=== PATIENT | male | born 2000 | race African-American/Black ===

== ENCOUNTER 2018-01-10 14:37 | Emergency (ER) | payer OTHER ==
--- NOTE | 2018-01-10 15:26 | PDOC ---
History of Present Illness - General Chief Complaint: Cold Symptoms Stated Complaint: FLU Time Seen by Provider: 01/10/18 15:21 History Source: Patient Exam Limitations: No Limitations - History of Present Illness Initial Comments: 01/10/18 15:34 CHIEF COMPLAINT: Fever and cough 3 days HISTORY OF PRESENT ILLNESS: 17-year-old, previously healthy, [facility] [employer] student living in the dorms. Patient was well until when he developed fever, headache, sore throat, fever and chills, nausea, vomiting, and slight diarrhea. He feels very weak and achy all over. His nose is running and he cannot stop sneezing. His throat feels sore especially when he coughs. He has cough with some greenish sputum. He's been having fever on and off. The last episode of vomiting was yesterday. He had some slight diarrhea which has resolved. His headache comes and goes. There is no neck stiffness. He has been exposed to multiple sick contacts with the flu at school. REVIEW OF SYSTEMS: GENERAL/CONSTITUTIONAL: Positive fever and chills. Positive weakness. HEAD, EYES, EARS, NOSE AND THROAT: Positive nasal congestion and sore throat with cough. CARDIOVASCULAR: Other chest pain on coughing. No shortness of breath. RESPIRATORY: Positive cough with green sputum. No history of asthma. No wheezing. GASTROINTESTINAL: Awes of nausea and vomiting yesterday. Now resolved. Slight diarrhea, now resolved. No rectal bleeding. GENITOURINARY: No dysuria, frequency, or change in urination. MUSCULOSKELETAL: Positive diffuse joint and muscle aching. SKIN AND BREASTS: No rash or easy bruising. NEUROLOGIC: Positive headache, on and off. No syncope. No focal numbness or weakness. PSYCHIATRIC: No depression or anxiety. ENDOCRINE: No increased thirst. No abnormal weight change. HEMATOLOGIC/LYMPHATIC: No anemia, easy bleeding, or history of blood clots. ALLERGIC/IMMUNOLOGIC: No hives or skin allergy. No latex allergy. Past History - Past Medical History Allergies/Adverse Reactions: Allergies Allergy/AdvReac Type Severity Reaction Status Date / Time No Known Allergies Allergy Verified 01/10/18 15:56 Home Medications: Ambulatory Orders Naproxen [Naprosyn] 500 mg PO BID PRN #14 tablet 01/10/18 COPD: No - Immunization History Immunization Up to Date: Yes - Suicide/Smoking/Psychosocial Hx Smoking History: Former smoker Have you smoked in the past 12 months: No If you are a former smoker, when did you quit?: PT SMOKES MARIJUANA Information on smoking cessation initiated: No Hx Alcohol Use: No Drug/Substance Use Hx: Yes (MARIJUANA) Substance Use Type: None *Physical Exam - Vital Signs Last Vital Signs Temp Pulse Resp BP Pulse Ox 102.8 F H 110 H 18 116/63 01/10/18 14:38 01/10/18 14:38 01/10/18 14:38 01/10/18 14:38 - Physical Exam Comments: 01/10/18 15:36 GENERAL: The patient is awake, alert, and fully oriented, in no acute distress. He is coughing intermittently. HEAD: Normal with no signs of trauma. EYES: Pupils equal, round and reactive to light, extraocular movements intact, sclera anicteric, conjunctiva clear. ENT: Ears are normal. Nares with erythema and clear discharge. Oropharynx with slight erythema, no exudates. Uvula is normal. NECK: Normal range of motion, supple without lymphadenopathy, JVD, or masses. No meningismus. LUNGS: Breath sounds equal, clear to auscultation bilaterally. No wheezes, and no crackles. HEART: Regular rate and rhythm, normal S1 and S2 without murmur, rub or gallop. ABDOMEN: Soft, nontender, normoactive bowel sounds. No guarding, no rebound. No masses. EXTREMITIES: Normal range of motion, no edema. No clubbing or cyanosis. No cords, erythema, or tenderness. NEUROLOGICAL: Cranial nerves II through XII grossly intact. Normal speech, normal gait. PSYCH: Normal mood, normal affect. SKIN: Warm, Dry, normal turgor, no rashes or lesions noted. 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 He is taking good oral fluids in the emergency department. He was given Tylenol and Naprosyn for fever and pain and he is now feeling much better. Repeat vitals: Vital Signs - 24 hr 01/10/18 01/10/18 14:38 17:32 Temperature 102.8 F H 99.1 F Pulse Rate 110 H Pulse Rate [ 88 Right Radial] Respiratory 18 Rate Blood Pressure 116/63 Blood Pressure 111/82 [Right Arm] O2 Sat by Pulse 100 Oximetry (%) On examination, his mucous membranes are inflamed, and he has frequent coughing , but his lungs are clear. Chest x-ray AP and lateral was reviewed by me. There is no focal infiltrate. Final radiology reading is pending at the time of disposition. Radiology follow -up program in place. Impression: Influenza-like illness in a young healthy man. Patient will be discharged with recommendations for oral hydration, Naprosyn twice a day as needed for pain and fever, rest until the symptoms improved. There is no evidence for acute pneumonia. Given that he is multiple days out from onset and not in one of the high risk groups, Tamiflu is not indicated. *DC/Admit/Observation/Transfer Diagnosis at time of Disposition: Influenza-like illness - Discharge Dispostion Disposition: HOME Condition at time of disposition: Stable Admit: No - Prescriptions Prescriptions: Naproxen [Naprosyn] 500 mg PO BID PRN #14 tablet PRN Reason: fever and pain - Referrals - Patient Instructions Printed Discharge Instructions: DI for Viral Upper Respiratory Infection -- Adult Additional Instructions: You were evaluated today for fever and flulike symptoms. Your chest x-ray is clear, showing no signs of any pneumonia. You are recommended to rest at home until the fever resolves. Drink plenty of fluids every day including soup, Gatorade, and other fluids. Do not return to class until the fever is gone. Take Naprosyn 500 mg twice daily with food as needed for pain or fever. Normally, the flu symptoms should resolve within a few days. Follow-up with the doctor or return to the emergency room for any progressive or severe symptoms. - Post Discharge Activity
[2018-01-10] MEDS ORDERED: ACETAMINOPHEN 325 MG TABLET (FP) PO ONE (15:33)
[2018-01-10] MEDS ORDERED: NAPROXEN 375 MG TABLET (FP) PO ONE (15:33)
[2018-01-10 17:33] VITALS: BP 111/82; PULSE 88; TEMP 99.1
== END 2018-01-10 18:18 | disposition home or self-care (01) ==
LOC: FER 14:37
DX: J11.1 Influenza due to unidentified influenza virus with other respiratory manifestations (principal); Z87.891 Personal history of nicotine dependence
CPT/HCPCS: 71046-TC-FY; 99281-25

== ENCOUNTER 2018-01-14 00:05 | Emergency (ER) | payer OTHER ==
[2018-01-14 00:16] VITALS: BP 136/77; PULSE 69; TEMP 97.3; BMI 19.8
--- NOTE | 2018-01-14 00:39 | PDOC ---
History of Present Illness - General Exam Limitations: No Limitations - History of Present Illness Initial Comments: 01/14/18 00:45 The patient is a 17 year old male, with no significant past medical history, who presents to the emergency department with, approx one day of diffuse abdominal pain and diarrhea. The patient reports he went to the hospital last week and was prescribed Tamiflu for flu-like symptoms. The patient states he was feeling better but last night (approx. 24 hours ago) he went to have dinner and after dinner began having diarrhea (non bloody). The patient states he has been having a crampy diffuse abdominal pain since last night so he decided to come to the ED today for evaluation. He denies any recent fevers, chills, headache or dizziness. He denies any recent nausea, vomit, or constipation. He denies any recent chest pain or shortness of breath. Allergies: NKA <Scar Carbone - Last Filed: 01/14/18 00:52> - General History Source: Patient <Evangelist Babcock - Last Filed: 01/14/18 02:29> - General Chief Complaint: Pain, Acute Stated Complaint: ABDOMINAL PAIN Time Seen by Provider: 01/14/18 00:24 Past History <Scar Carbone - Last Filed: 01/14/18 00:52> - Past Medical History COPD: No - Immunization History Immunization Up to Date: Yes - Suicide/Smoking/Psychosocial Hx Smoking History: Never smoked Have you smoked in the past 12 months: No If you are a former smoker, when did you quit?: PT SMOKES MARIJUANA Information on smoking cessation initiated: No Hx Alcohol Use: No Drug/Substance Use Hx: No Substance Use Type: None <Evangelist Babcock - Last Filed: 01/14/18 02:29> - Past Medical History Allergies/Adverse Reactions: Allergies Allergy/AdvReac Type Severity Reaction Status Date / Time No Known Allergies Allergy Verified 01/14/18 00:14 Home Medications: Ambulatory Orders Naproxen [Naprosyn] 500 mg PO BID PRN #14 tablet 01/10/18 Review of Systems - Review of Systems Comments:: 01/14/18 00:48 CONSTITUTIONAL: Absent: fever, no chills, no fatigue EYES: Absent: visual changes ENT: Absent: ear pain, no sore throat CARDIOVASCULAR: Absent: chest pain, no palpitations RESPIRATORY: Absent: cough, no SOB GI: Present: (+) Diarrhea. (+) Diffuse abdominal pain. Absent: no nausea, no vomiting, no constipation, GENITOURINARY: Absent: dysuria, no frequency, no hematuria MUSKULOSKELETAL: Absent: back pain, no arthralgia, no myalgia SKIN: Absent: rash NEURO: Absent: headache <Scar Carbone - Last Filed: 01/14/18 00:52> *Physical Exam - Vital Signs Last Vital Signs Temp Pulse Resp BP Pulse Ox 97.3 F L 69 18 136/77 97 01/14/18 00:15 01/14/18 00:15 01/14/18 00:15 01/14/18 00:15 01/14/18 00:15 - Physical Exam Comments: 01/14/18 00:49 GENERAL: Well-appearing, well-nourished. No apparent distress. HEENT: Normocephalic, atraumatic. PERRL, EOM intact. CARDIOVASCULAR: Normal S1, S2. Regular rate and rhythm. PULMONARY: Clear to auscultation bilaterally. ABDOMEN: +Diffuse mild tenderness. No guarding. No rebound. Soft, non-distended. EXTREMITIES: Normal ROM in all four extremities. No gross deformities. SKIN: Warm, dry. No rash NEUROLOGICAL: No focal neurological deficits. <Scar Carbone - Last Filed: 01/14/18 00:52> - Vital Signs Last Vital Signs Temp Pulse Resp BP Pulse Ox 97.3 F L 69 18 136/77 97 01/14/18 00:15 01/14/18 00:15 01/14/18 00:15 01/14/18 00:15 01/14/18 00:15 <Evangelist Babcock - Last Filed: 01/14/18 02:29> ED Treatment Course - LABORATORY CBC & Chemistry Diagram: 01/14/18 00:50 01/14/18 00:50 <Evangelist Babcock - Last Filed: 01/14/18 02:29> Medical Decision Making - Medical Decision Making 01/14/18 02:29 Dr. Babcock: The scribe's documentation has been prepared under my direction and personally reviewed by me in its entirery. I confirm that the note above accurately reflects all work, treatment, procedures, and medical decision making performed by ne. <Evangelist Babcock - Last Filed: 01/14/18 02:29> *DC/Admit/Observation/Transfer - Attestations Scribe Attestion: 01/14/18 00:50 Documentation prepared by Scar Carbone, acting as medical assistant supervisor for Evangelist Babcock MD. <Scar Carbone - Last Filed: 01/14/18 00:52> - Discharge Dispostion Admit: No <Evangelist Babcock - Last Filed: 01/14/18 02:29> Diagnosis at time of Disposition: Abdominal pain Qualifiers: Abdominal location: generalized Qualified Code(s): R10.84 - Generalized abdominal pain - Discharge Dispostion Disposition: HOME Condition at time of disposition: Stable - Patient Instructions Printed Discharge Instructions: DI for Abdominal Pain-Adult Additional Instructions: eat a light diet and increase as tolerated. Drink plenty of fluids. Follow up with your doctor if symptoms become worse. - Post Discharge Activity Forms/Work/School Notes: Back to School
[2018-01-14] MEDS ORDERED: KETOROLAC TROMETHAMINE 30 MG/1 ML VIAL IVPUSH ONE (00:40)
[2018-01-14] MEDS ORDERED: ONDANSETRON 4 MG/2 ML VIAL IVPUSH STA (00:40)
[2018-01-14] MEDS ORDERED: SODIUM CHLORIDE 1,000 ML IV STA (00:40)
[2018-01-14] MEDS ORDERED: KETOROLAC TROMETHAMINE 30 MG/1 ML VIAL ONE (00:44)
[2018-01-14] MEDS ORDERED: ONDANSETRON 4 MG/2 ML VIAL ONE (00:44)
[2018-01-14 01:08] LABS: BASO % 0.5 % (0-2.0); EOS % 1.2 % (0-4.5); HEMATOCRIT 44.7 % (35.4-49); HEMOGLOBIN 15.1 GM/dL (11.7-16.9); MCH 31.7 pg (25.7-33.7); MCHC 33.8 g/dl (32.0-35.9); MEAN CELL VOLUME 93.8 fl (80-96); MEAN PLT VOLUME 8.7 fl (7.5-11.1); MONO % 7.8 % (3.8-10.2); NEUT % 64.5 % (42.8-82.8); PLATELET COUNT 229 K/MM3 (134-434); RBC 4.76 M/mm3 (4.00-5.60); WHITE BLOOD COUNT 4.1 K/mm3 (4.0-10.0)
[2018-01-14 01:35] LABS: ALBUMIN 4.3 g/dl (3.4-5.0); ALK PHOS 74 U/L (45-117); ANION GAP 11 (8-16); BILIRUBIN,TOTAL 0.7 mg/dL (0.2-1.0); BLOOD UREA NITROGEN 9 mg/dL (7-18); CALCIUM 9.2 mg/dL (8.5-10.1); CHLORIDE 102 mmol/L (98-107); CO2 26 mmol/L (21-32); CREATININE 0.9 mg/dL (0.7-1.3); GLUCOSE,RANDOM 97 mg/dL (74-106); LIPASE 124 U/L (73-393); MAGNESIUM 2.2 mg/dL (1.8-2.4); POTASSIUM 3.7 mmol/L (3.5-5.1); SGOT/AST 22 U/L (15-37); SGPT/ALT 15 U/L (12-78); SODIUM 139 mmol/L (136-145); TOT PROT 7.2 g/dl (6.4-8.2)
--- NOTE | 2018-01-17 11:50 | EKG ---
Test Reason : Blood Pressure : / mmHG Vent. Rate : 062 BPM Atrial Rate : 062 BPM P-R Int : 142 ms QRS Dur : 088 ms QT Int : 376 ms P-R-T Axes : 046 080 047 degrees QTc Int : 381 ms NORMAL SINUS RHYTHM NO PREVIOUS ECGS AVAILABLE Confirmed by MD FARIHA, AUREA ([id number]) on 01/17/2018 11:50:11 AM Referred By: Confirmed By:AUREA FRIED MD
== END 2018-01-14 02:39 | disposition home or self-care (01) ==
LOC: JER 00:05
PROC: 3E0333Z Introduction of Anti-inflammatory into Peripheral Vein, Percutaneous Approach (ICD-10-PCS; principal; 2018-01-14)
PROC: 3E033GC Introduction of Other Therapeutic Substance into Peripheral Vein, Percutaneous Approach (ICD-10-PCS; 2018-01-14)
PROC: 3E0337Z Introduction of Electrolytic and Water Balance Substance into Peripheral Vein, Percutaneous Approach (ICD-10-PCS; 2018-01-14)
DX: R10.84 Generalized abdominal pain (principal)
CPT/HCPCS: 36415; 80053; 83690; 83735; 85025; 93005; 93010; 96361; 96374; 96375; 99282-25; J7030